=== PATIENT | male | born 1970 | race African-American/Black ===

== ENCOUNTER 2019-09-27 00:38 | Inpatient (IN) | payer MEDICARE, MEDICAID ==
[~2019-09-27] VITALS: Ht 172.7 cm; Wt 136.6 kg
[2019-09-27] MEDS ORDERED: FUROSEMIDE 100MG/10ML VIAL IVP ONE (00:45)
[2019-09-27 02:06] LABS: BASOPHILS % 0.8 % (0.0-2.0); EOSINOPHILS % 2.5 % (0.0-5.0); HEMATOCRIT. 41.5 % (42.0-52.0); HEMOGLOBIN. 13.6 g/dL (14.0-18.0); MEAN CORPUSCULAR VOLUME 85.8 fL (80.0-94.0); MEAN PLATELET VOLUME 9.1 fl (7.4-10.4); MONOCYTES % 9.9 % (2.0-8.0); NEUTROPHILS % 67.8 % (40.0-76.0); PLATELET 155 x1000/uL (130-400); RED BLOOD CELL COUNT 4.84 mill/uL (4.7-6.1); RED CELL DISTRIBUTION WIDTH 16.5 % (11.6-14.6)
[2019-09-27 02:36] LABS: CHLORIDE 109 mEq/L (98-107)
[2019-09-27 02:43] LABS: BETA HYDROXYBUTYRATE 0.1 mMol/L (0.0-0.3)
[2019-09-27] MEDS ORDERED: ACETAMINOPHEN 325MG TABLET PO PRN (06:45)
[2019-09-27] MEDS ORDERED: DOCUSATE SODIUM 100MG CAPSULE PO PRN (06:45)
[2019-09-27] MEDS ORDERED: ONDANSETRON HCL 4MG/2ML INJ IV PRN (06:45)
[2019-09-27] MEDS ORDERED: TRAMADOL 50MG TABLET PO PRN (06:45)
[2019-09-27] MEDS ORDERED: CLONIDINE 0.1MG TABLET PO PRN (06:45)
[2019-09-27] MEDS ORDERED: GUAIFENESIN 200MG/10ML SUGAR FREE UDC PO PRN (06:45)
[2019-09-27] MEDS ORDERED: MAGNESIUM/ALUMINUM HYDROXIDE/SIMETHICONE 30ML UDC PO PRN (06:45)
[2019-09-27] MEDS ORDERED: NITROGLYCERIN 0.4MG TABLET SL SL PRN (06:45)
[2019-09-27] MEDS ORDERED: ZOLPIDEM TARTRATE 5MG TABLET PO PRN ×2 (06:45)
[2019-09-27 07:18] LABS: FOLIC ACID (FOLATE) SERUM 6.9 ng/mL (>5.38)
[2019-09-27 08:00] VITALS: BP 145/91
[2019-09-27 08:16] LABS: *AMPHETAMINES SCREEN URINE NEGATIVE (NEGATIVE); *BARBITURATES SCREEN URINE NEGATIVE (NEGATIVE); *BENZODIAZEPINES SCREEN URINE NEGATIVE (NEGATIVE); *COCAINE SCREEN URINE NEGATIVE (NEGATIVE); CANNABINOID URINE SCREEN PRESUMTIVE POSITIVE (NEGATIVE); METHADONE URINE SCREEN NEGATIVE (NEGATIVE); OPIATES URINE SCREEN NEGATIVE (NEGATIVE); PHENCYCLIDINE URINE SCREEN NEGATIVE (NEGATIVE)
[2019-09-27] MEDS ORDERED: IPRATROPIUM/ALBUTEROL 0.5-3(2.5)MG/3ML NEB NEB PRN (09:00)
[2019-09-27 09:05] VITALS: BP 145/91
[2019-09-27] MEDS ORDERED: IPRA4AER INH (11:45)
[2019-09-27] MEDS ORDERED: TIOT18CA3 INH (11:45)
[2019-09-27 12:00] VITALS: BP 133/71
[2019-09-27] MEDS ORDERED: IPRATROPIUM/ALBUTEROL 0.5-3(2.5)MG/3ML NEB HHN SCH (12:00)
[2019-09-27] MEDS ORDERED: AMLODIPINE 5MG TABLET PO SCH (13:30)
[2019-09-27] MEDS: ENOXAPARIN 30MG/0.3ML SYR SUBCUT SCH ×2 (13:41→21:23)
[2019-09-27] MEDS: GUAIFENESIN/DM 600MG/30MG ER TAB 12HR PO SCH ×2 (13:41→21:23)
[2019-09-27] MEDS: ZINC SULFATE 220 MG ( 50 ) CAPSULE PO SCH (13:41)
[2019-09-27] MEDS: ASPIRIN 325MG EC TABLET PO SCH (13:42)
[2019-09-27] MEDS: ASCORBIC ACID 500 MG TABLET PO SCH ×2 (13:42→21:24)
[2019-09-27] MEDS: FAMOTIDINE 20MG TABLET PO SCH ×2 (13:42→21:24)
[2019-09-27] MEDS: LEVOFLOXACIN 500MG PREMIX 100 ML IV SCH (13:43)
[2019-09-27] MEDS: LISINOPRIL 20MG TABLET PO SCH ×2 (13:43→21:24)
[2019-09-27] MEDS: SPIRONOLACTONE 25MG TABLET PO SCH ×2 (13:44→17:09)
[2019-09-27] MEDS: FUROSEMIDE 40MG/4ML VIAL IVP SCH ×2 (13:44→17:08)
[2019-09-27 16:00] VITALS: BP_SYST 128; BP_SYST 154; BP_DIAS 75; BP_DIAS 95
[2019-09-27 17:41] VITALS: BP 128/75
[2019-09-27 20:00] VITALS: BP 138/92
[2019-09-27] MEDS ORDERED: DEXTROSE 50% WATER 50ML SYRINGE IV PRN ×2 (20:15)
[2019-09-27] MEDS ORDERED: INSULIN LISPRO 100 UNITS/ML SUBCUT SCH (21:00)
[2019-09-27] MEDS ORDERED: BLOOD SUGAR DIAGNOSTIC STRIP TEST SCH (21:00)
[2019-09-27] MEDS: INSULIN LISPRO 100 UNITS/ML SUBCUT SCH (21:00)
[2019-09-27] MEDS: BLOOD SUGAR DIAGNOSTIC STRIP TEST SCH (21:24)
[2019-09-27] MEDS: AMLODIPINE 5MG TABLET PO SCH (21:24)
[2019-09-28] VITALS: BP 143/96
[2019-09-28 04:00] VITALS: BP 130/82
[2019-09-28] MEDS: BLOOD SUGAR DIAGNOSTIC STRIP TEST SCH ×4 (05:45→20:09)
[2019-09-28] MEDS: INSULIN LISPRO 100 UNITS/ML SUBCUT SCH ×4 (06:14→20:09)
[2019-09-28] MEDS: SPIRONOLACTONE 25MG TABLET PO SCH ×2 (06:51→18:08)
[2019-09-28] MEDS: FUROSEMIDE 40MG/4ML VIAL IVP SCH ×2 (06:51→17:58)
[2019-09-28 06:52] LABS: BASOPHILS % 1.1 % (0.0-2.0); EOSINOPHILS % 5.2 % (0.0-5.0); HEMATOCRIT. 43.8 % (42.0-52.0); HEMOGLOBIN. 14.2 g/dL (14.0-18.0); LYMPHOCYTES % 40.3 % (20.0-50.0); MEAN CORPUSCULAR HEMOGLOBIN 27.8 pg (28.0-32.0); MEAN PLATELET VOLUME 8.5 fl (7.4-10.4); MONOCYTES % 11.3 % (2.0-8.0); NEUTROPHILS % 42.1 % (40.0-76.0); PLATELET 143 x1000/uL (130-400); RED BLOOD CELL COUNT 5.09 mill/uL (4.7-6.1); RED CELL DISTRIBUTION WIDTH 16.2 % (11.6-14.6)
[2019-09-28 07:00] LABS: CHLORIDE 107 mEq/L (98-107)
[2019-09-28 07:06] LABS: PHOSPHORUS 3.7 mg/dL (2.5-4.9)
[2019-09-28 08:00] VITALS: BP 138/90
[2019-09-28] MEDS: GUAIFENESIN/DM 600MG/30MG ER TAB 12HR PO SCH ×2 (09:03→20:17)
[2019-09-28] MEDS: ASCORBIC ACID 500 MG TABLET PO SCH ×2 (09:03→20:07)
[2019-09-28] MEDS: ASPIRIN 325MG EC TABLET PO SCH (09:03)
[2019-09-28] MEDS: ENOXAPARIN 30MG/0.3ML SYR SUBCUT SCH ×2 (09:03→20:08)
[2019-09-28] MEDS: ZINC SULFATE 220 MG ( 50 ) CAPSULE PO SCH (09:03)
[2019-09-28] MEDS: FAMOTIDINE 20MG TABLET PO SCH ×2 (09:03→20:08)
[2019-09-28] MEDS: LISINOPRIL 20MG TABLET PO SCH ×2 (09:09→20:08)
[2019-09-28] MEDS: AMLODIPINE 5MG TABLET PO SCH ×2 (09:09→20:08)
[2019-09-28 12:00] VITALS: BP 136/97
[2019-09-28] MEDS: LEVOFLOXACIN 500MG PREMIX 100 ML IV SCH (13:27)
[2019-09-28] MEDS: ALLOPURINOL 100 MG TABLET PO SCH (13:27)
[2019-09-28] MEDS: NICOTINE 14MG PATCH TD SCH (13:28)
[2019-09-28 20:00] VITALS: BP 115/82
[2019-09-29] VITALS: BP 125/87
[2019-09-29 04:00] VITALS: BP 119/74
[2019-09-29] MEDS: SPIRONOLACTONE 25MG TABLET PO SCH ×2 (06:00→18:26)
[2019-09-29] MEDS: FUROSEMIDE 40MG/4ML VIAL IVP SCH ×2 (06:00→18:24)
[2019-09-29] MEDS: BLOOD SUGAR DIAGNOSTIC STRIP TEST SCH ×4 (07:58→20:54)
[2019-09-29] MEDS: INSULIN LISPRO 100 UNITS/ML SUBCUT SCH ×4 (07:58→20:54)
[2019-09-29 08:00] VITALS: BP 105/41
[2019-09-29] MEDS: LISINOPRIL 20MG TABLET PO SCH ×2 (09:00→20:43)
[2019-09-29] MEDS: AMLODIPINE 5MG TABLET PO SCH ×2 (09:00→20:43)
[2019-09-29] MEDS: NICOTINE 14MG PATCH TD SCH (11:33)
[2019-09-29] MEDS: GUAIFENESIN/DM 600MG/30MG ER TAB 12HR PO SCH ×2 (11:33→20:42)
[2019-09-29] MEDS: ASPIRIN 325MG EC TABLET PO SCH (11:36)
[2019-09-29] MEDS: ZINC SULFATE 220 MG ( 50 ) CAPSULE PO SCH (11:36)
[2019-09-29] MEDS: FAMOTIDINE 20MG TABLET PO SCH ×2 (11:36→20:43)
[2019-09-29] MEDS: ALLOPURINOL 100 MG TABLET PO SCH (11:36)
[2019-09-29] MEDS: ASCORBIC ACID 500 MG TABLET PO SCH ×2 (11:36→20:43)
[2019-09-29] MEDS: ENOXAPARIN 30MG/0.3ML SYR SUBCUT SCH ×2 (11:37→20:43)
[2019-09-29 12:00] LABS: BASOPHILS % 1.1 % (0.0-2.0); EOSINOPHILS % 3.4 % (0.0-5.0); HEMATOCRIT. 44.2 % (42.0-52.0); HEMOGLOBIN. 14.4 g/dL (14.0-18.0); LYMPHOCYTES % 31.4 % (20.0-50.0); MEAN CORPUSCULAR HEMOGLOBIN 27.8 pg (28.0-32.0); MEAN CORPUSCULAR VOLUME 85.2 fL (80.0-94.0); MEAN PLATELET VOLUME 8.4 fl (7.4-10.4); MONOCYTES % 14.1 % (2.0-8.0); PLATELET 181 x1000/uL (130-400); RED BLOOD CELL COUNT 5.18 mill/uL (4.7-6.1)
[2019-09-29 12:07] LABS: CHLORIDE 103 mEq/L (98-107)
[2019-09-29] MEDS: LEVOFLOXACIN 500MG PREMIX 100 ML IV SCH (14:19)
[2019-09-29 16:00] VITALS: BP 139/95
[2019-09-29 20:00] VITALS: BP 151/85
[2019-09-30] VITALS: BP 109/68
[2019-09-30 04:00] VITALS: BP 130/78
[2019-09-30] MEDS: SPIRONOLACTONE 25MG TABLET PO SCH ×2 (06:17→18:27)
[2019-09-30] MEDS: FUROSEMIDE 40MG/4ML VIAL IVP SCH (06:17)
[2019-09-30] MEDS: BLOOD SUGAR DIAGNOSTIC STRIP TEST SCH ×3 (06:59→16:45)
[2019-09-30] MEDS: INSULIN LISPRO 100 UNITS/ML SUBCUT SCH ×3 (07:28→17:15)
[2019-09-30 08:00] VITALS: BP 90/61
[2019-09-30] MEDS: LISINOPRIL 20MG TABLET PO SCH (09:00)
[2019-09-30] MEDS ORDERED: FUROSEMIDE 40MG TABLET PO SCH (09:00)
[2019-09-30] MEDS: AMLODIPINE 5MG TABLET PO SCH (09:00)
[2019-09-30] MEDS: NICOTINE 14MG PATCH TD SCH (10:27)
[2019-09-30] MEDS: ZINC SULFATE 220 MG ( 50 ) CAPSULE PO SCH (10:28)
[2019-09-30] MEDS: ENOXAPARIN 30MG/0.3ML SYR SUBCUT SCH (10:28)
[2019-09-30] MEDS: ASPIRIN 325MG EC TABLET PO SCH (10:28)
[2019-09-30] MEDS: GUAIFENESIN/DM 600MG/30MG ER TAB 12HR PO SCH (10:28)
[2019-09-30] MEDS: ALLOPURINOL 100 MG TABLET PO SCH (10:28)
[2019-09-30] MEDS: ASCORBIC ACID 500 MG TABLET PO SCH (10:28)
[2019-09-30] MEDS: LEVOFLOXACIN 500MG PREMIX 100 ML IV SCH (10:29)
[2019-09-30] MEDS: FAMOTIDINE 20MG TABLET PO SCH (10:29)
[2019-09-30 14:00] VITALS: BP 104/56
[2019-09-30 16:00] VITALS: BP 142/97
[2019-09-30 19:30] VITALS: BP 125/84
[2019-10-01] MEDS ORDERED: LISINOPRIL 10MG TABLET PO SCH (09:00)
[2019-10-01] MEDS ORDERED: LEVOFLOXACIN 500MG TABLET PO SCH (11:00)
== END 2019-09-30 22:35 | DRG 871 ==
LOC: ER 00:38 → 7EST 05:24 → EDBEDREQTM 05:34 → EDBEDREQ 05:34 → SUPCPDRO 06:25 → ENRESERV 07:41 → 7WST 09-28 19:04 → 5WST 09-30 11:52
PROVIDERS: ADMIT Internal Medicine; ATTEND Internal Medicine
DX: A41.9 Sepsis, unspecified organism (principal); I50.43 Acute on chronic combined systolic (congestive) and diastolic (congestive) heart failure; J96.00 Acute respiratory failure, unspecified whether with hypoxia or hypercapnia; J18.9 Pneumonia, unspecified organism; Z68.42 Body mass index [BMI] 45.0-49.9, adult; F12.10 Cannabis abuse, uncomplicated; E83.51 Hypocalcemia; G47.33 Obstructive sleep apnea (adult) (pediatric); R94.31 Abnormal electrocardiogram [ECG] [EKG]; Z03.818 Encounter for observation for suspected exposure to other biological agents ruled out; E11.9 Type 2 diabetes mellitus without complications; I11.0 Hypertensive heart disease with heart failure; Z20.828 Contact with and (suspected) exposure to other viral communicable diseases; J42 Unspecified chronic bronchitis; E66.01 Morbid (severe) obesity due to excess calories; E66.09 Other obesity due to excess calories; Z83.3 Family history of diabetes mellitus; Z79.899 Other long term (current) drug therapy; Z82.49 Family history of ischemic heart disease and other diseases of the circulatory system; Z82.3 Family history of stroke; Z79.4 Long term (current) use of insulin; Z71.51 Drug abuse counseling and surveillance of drug abuser
CPT/HCPCS: 36415; 71045; 80048; 80053; 80061; 80305; 82010; 82607; 82746; 82962; 83036; 83540; 83550; 83605; 83615; 83735; 83880; 84100; 84145; 84484; 85025; 87635; 87804; 93005; 97162; 97166; 99291; J1650; J1940; J1956